=== PATIENT | male | born 1975 | race Caucasian/White ===

== ENCOUNTER 2019-02-17 11:05 | Emergency (ER) | payer BC, SELFPAY ==
[2019-02-17 11:06] VITALS: BP 129/76; PULSE 78; RESP 16; TEMP 36; O2SAT 95; BMI 33.0
[2019-02-17] MEDS: Doxycycline 100 MG CAPSULE PO (11:38)
[2019-02-17] MEDS: HYDROcodone Bitartrate/Apap 5/325 Tablet PO (11:38)
--- NOTE | 2019-02-17 11:42 | RAD_ITS ---
STUDY: X-RAY - LEFT ELBOW REASON FOR EXAM: Male, 43 years old. Pain and swelling. TECHNIQUE: 3 view(s) of the elbow. COMPARISON: None. FINDINGS: Normal visualized humerus, radius and ulna. Degenerative spur off of the olecranon. Normal radiocapitellar and ulnotrochlear articulations. Soft tissue swelling overlying the olecranon process. RAD/Elbow min 3 Views IMPRESSION: Soft tissue swelling overlying the olecranon with degenerative spurring of the olecranon. Electronically Signed: Gage Humphrey, at 12:21 EST , Service support ,
--- NOTE | 2019-02-17 12:32 | ED.DCSUM_ITS ---
History of Present Illness Chief Complaint: Cellulitis Detail of Chief Complaint: Left elbow pain and swelling Informant: Patient, Family Onset: Weeks - 1 week Current Severity: Moderate Maximum Severity: Moderate Narrative: Patient presents with pain and swelling to the left elbow. 6 days ago he noted some pain in his elbow. He woke the next morning with a swollen area on extensor surface of his elbow. He was seen at the emergency room in [place] and was diagnosed with bursitis. He was started on an NSAID. Patient is scheduled to follow-up with orthopedics this coming week. He states that the focal swelling in the back of his elbow seems to be improved, but he now has swelling noted over the proximal forearm with mild erythema. He does have pain with flexion and extension of his elbow, feel that the skin on the back of his elbow was pulling tight. He does not have paresthesias. He is left-hand dominant. - Past Medical History (1) Myocardial infarction Status: Chronic (2) H/O heart artery stent Status: Chronic Past Medical History - Allergies and Home Meds Allergies/Adverse Reactions: Allergies No Known Allergies Allergy (Verified 02/17/19 11:07) Prior records reviewed: Yes Lives: Spouse/ Significant Other Smoking Status: Never smoker Review of Systems General: Denies: Chills, Fever Eyes: Denies: Visual changes - bilaterally ENT: Denies: Bilateral ear pain Cardiovascular: Denies: Chest pain Respiratory: Denies: Dyspnea, Cough Gastrointestinal: Denies: Abdominal pain, Nausea, Vomiting, Diarrhea Musculoskeletal: Reports: Swelling, Extremity Pain Skin: Denies: Wounds Neurological: Denies: Weakness, Parasthesia Allergy: Denies: Uticaria Physical Exam Vital Signs/Narrative: Vital Signs Temp Pulse Resp BP Pulse Ox 02/17/19 11:06 96.8 F L 78 16 129/76 H 95 Inital Vital Signs reviewed: Yes General: Well nourished, Well developed Head: Normocephalic ENT: Moist mucous membranes Neck: Supple Cardiovascular: Regular rate, Regular rhythm Respiratory: No distress, CTA bilaterally Abdomen: Soft, Nontender Extremities: - - Mild erythema and edema noted over the posterior elbow and proximal forearm. No focal swelling consistent with an acute bursitis is noted at this time. Patient is able to pronate and supinate his hand without difficulty. He is able to flex and extend but does have pain with movement. There is no sign of joint infection. Skin: - - Mild erythema to left elbow Neurological: Alert, Oriented x3 Psychological: Normal affect Diagnostic/Tx/Re-eval Impressions Elbow X-Ray 02/17/19 11:42 IMPRESSION: Soft tissue swelling overlying the olecranon with degenerative spurring of the olecranon. Electronically Signed: Gage Humphrey, at 12:21 EST , Service support , 02/17/19 11:42 Elbow min 3 Views [RAD] Stat - Medical Decision Making Patient was given 1 tab of [place] here. X-rays are unremarkable. The bursal sac may have drained causing a more diffuse mild edema. There is mild erythema with minimal warmth. Patient's primary concern is his cardiac history with cardiac stent in place. He does not want any infection to go to his heart. He will be treated with a course of doxycycline, first dose given here. Thomas wrap is applied to the left elbow. He already has follow-up scheduled with orthopedics in 2 days. ED Disposition - Plan for ED Patient: Disposition: Home or Assisted Living Diagnosis: Cellulitis Instructions: Cellulitis Prescriptions: Doxycycline 100 mg PO BID #20 cap Transmission Status: Received by [id number] Hydrocodone Bitart/Apap 5-325 [[place] 5MG-325MG] 1 tab PO Q6H PRN PRN 3 Days #10 tab PRN Reason: Pain Transmission Status: Received by [id number] Referrals: Servando Sharp DO [STAFF PHYSICIAN] - Keep Trena appointment
[2019-02-17 12:49] VITALS: BP 131/67; PULSE 72; RESP 16; O2SAT 99
== END 2019-02-17 12:50 | disposition home or self-care (01) ==
PROVIDERS: Emergency Provider Emergency Medicine; Family Provider Family Medicine; PCP Family Medicine
DX: L03.114 Cellulitis of left upper limb (principal); M70.32 Other bursitis of elbow, left elbow; Y93.9 Activity, unspecified; M77.9 Enthesopathy, unspecified; I25.2 Old myocardial infarction; Z95.5 Presence of coronary angioplasty implant and graft; Z79.82 Long term (current) use of aspirin; Z79.899 Other long term (current) drug therapy
CPT/HCPCS: 73080; 99283

== ENCOUNTER → 2022-03-04 | Outpatient (CLI) | payer BC, SELFPAY ==
--- NOTE | 2022-03-04 08:48 | MRI_ITS ---
EXAM: MR RIGHT UPPER EXTREMITY WITHOUT INTRAVENOUS CONTRAST, SHOULDER CLINICAL INDICATION: pain and injury -- Patient also has metal plate in left orbit TECHNIQUE: Multiplanar and multisequence MR images of the right shoulder without intravenous contrast. This report was created using [employer] report generation technology. COMPARISON: X-ray 02/08/2022. FINDINGS: TENDONS: SUPRASPINATUS: 4 mm low-grade partial tear of the supraspinatus footprint. INFRASPINATUS: Unremarkable. Intact. SUBSCAPULARIS: Complete tear of the subscapularis tendon with 3 cm retraction. TERES MINOR: Unremarkable. Intact. BICEPS BRACHII, LONG HEAD: Unremarkable. The extra-articular biceps tendon is in the bicipital groove. The intra-articular biceps tendon is normal. LIGAMENTS: GLENOHUMERAL: Middle glenohumeral ligament appears torn. MUSCLES: Interstitial edema in the proximal subscapularis muscle consistent with tendon tear. FLUID: Trace joint effusion. No subacromial-subdeltoid space bursal fluid. GLENOID LABRUM: Unremarkable. Intact, limited evaluation on non-arthrographic exam. BONES/JOINTS: Mild acromioclavicular arthrosis. No fracture. No abnormal bone marrow signal. OTHER SOFT TISSUES: Extensive anterior bursal fluid consistent with tendon tear. MRI/Upper Ext Joint Only(Routine) IMPRESSION: 1. Complete subscapularis tendon tear. 2. Low-grade partial supraspinatus tendon tear. 3. Middle glenohumeral ligament tear. 4. Anterior bursal effusion. Electronically Signed: Opal Duarte MD at 23:12 EST Reading Location ID and State: [id number] / Tel , Service support ,
== END | disposition home or self-care (01) ==
PROVIDERS: PCP Family Medicine; Visit Provider Physician Assistant
DX: M19.011 Primary osteoarthritis, right shoulder (principal); M75.111 Incomplete rotator cuff tear or rupture of right shoulder, not specified as traumatic; H57.12 Ocular pain, left eye; S46.811A Strain of other muscles, fascia and tendons at shoulder and upper arm level, right arm, initial encounter; S05.92XA Unspecified injury of left eye and orbit, initial encounter
CPT/HCPCS: 73221

== ENCOUNTER 2022-05-03 07:02 | Day surgery (SDC) | payer BC, SELFPAY ==
[2022-05-03] VITALS (8 sets, daily range): BP systolic 116–160; BP diastolic 83–99; PULSE 67–87; RESP 16–18; TEMP 36.5–36.9; O2SAT 92–97; BMI 31.9
[2022-05-03 07:30] LABS: Hematocrit 42.1 % (40-54); Hemoglobin 14.8 g/dL (13.0-16.5); Mean Corp Hgb Conc 35.2 g/dL (32-36); Mean Corpuscular Hgb 32.6 pg (27.0-32.0); Mean Corpuscular Volume 92.7 fL (80-94); Mean Platelet Vol. 9.8 fl (6.2-12.0); Platelet Count 152 K/mm3 (150-450); RBC Distribution Width CV 12.3 % (11.6-14.6); RBC Distribution Width SD 41.9 fl (35.1-43.9); Red Blood Count 4.54 M/mm3 (4.6-6.2)
[2022-05-03] MEDS: Lactated Ringers 1,000 ML 15 ML IV ×3 (07:43→12:10)
[2022-05-03 07:53] LABS: Anion Gap 9 (5-15); BUN 15 mg/dL (7-18); BUN/Creat Ratio 10.3 RATIO (10-20); Calcium,Total 8.9 mg/dL (8.5-10.1); Chloride 105 mmol/L (98-107); Creatinine, Serum 1.45 mg/dL (0.70-1.30); EST Glomerular Filtration Rate 56 mL/min (>60); Est Glom Filt Rate - Afr Amer 67 mL/min (>60); Estimated Creatinine Clearance 65.73 ml/min; Glucose 125 mg/dL (74-106); Potassium 4.2 mmol/L (3.5-5.1); Sodium Level 138 mmol/L (136-145)
--- NOTE | 2022-05-03 08:34 | HP.PCM_ITS ---
HPI - General HPI Narrative LINCOLN OGDEN, is a 47 M who presents for right shoulder ARCR. No changes to h and p. marked right shoulder. ok to proceed. post op restrictions discussed. MR#: [id number] Acct: [id number] Name:LINCOLN HERR Rep #: [id number] : 1975 ? ? Provider: Dr. Philippe Ibanez MD Age/Sex:? 47/M ? ? [place] [facility] [place] [facility] [place] Status: Signed Intake Intake Visit Reasons:?RIGHT SHOULDER Allergies No Known Allergies Allergy (Verified 03/16/22 08:35) Medications aspirin 81 mg tablet,delayed release (Adult Low Dose Aspirin) 81 mg PO DAILY 06/09/21 [History Confirmed 03/16/22] atorvastatin 10 mg tablet (Lipitor) 10 mg PO DAILY 06/09/21 [History Confirmed 03/16/22] colchicine 0.6 mg capsule 0.6 mg PO DAILY 06/09/21 [History Confirmed 03/16/22] metoprolol tartrate 25 mg tablet 25 mg PO DAILY 06/09/21 [History Confirmed 03/16/22] sertraline 150 mg capsule 150 mg PO DAILY 06/09/21 [History Confirmed 03/16/22] prednisone 5 mg tablets in a dose pack 5 mg PO DIRECTED 02/08/22 [History Confirmed 03/16/22] PFSH Medical History?(Updated 03/16/22 @ 09:00 by Philippe Ibanez MD) Avulsion of right subscapularis Encounter for screening for COVID-19 Gout Heart disease HTN (hypertension) SOB (shortness of breath) Surgical History? H/O hernia repair History of facial surgery Family History? Other Heart disease Hypercholesterolemia Social History? Smoking Status:? Never smoker Smokeless tobacco user:? chewing tobacco alcohol intake:? current alcohol intake frequency: 3 or more drinks per day Alcohol type: beer HPI RIGHT SHOULDER Details: Parts of this documentation were recorded by a scribe, this documentation accur ately reflects the service provided and the decisions made by me, Dr. Philippe Ibanez MD 03/16/22 0821. LINCOLN OGDEN is a 47 year old M here today for? there was a pop when getting onto a horse 6 weeks ago, bareback. And got bucked off. It hurt, anteriorly. Ambidextrous, but lots with right. This is a hobby, playing with his daughters. Feels weak now. Ortho Exam General General: Yes no acute distress Neurologic: Yes alert and Yes oriented x3 Psychologic: Yes reasonable and appropriate Right Shoulder Skin/Wound: Yes CDI, No ecchymosis, No erythema and No swelling Testing: Positive Hawkin's, Neer's, TTP Biceps, AROM-External Rotation at side 0-60, PROM-Forward Elevation 0-180, empty can and belly press normal; Negative Speed's, TTP AC Joint, Drop Arm, Apprehension Test, Sulcus Sign or scapular winging SHOULDER: bear hug strong 4+/5 but causes anterior pain. SS 4+/5 Supplemental Info MR#:? [id number] Acct: [id number] Name:? LINCOLN LLANOS SR Rep #: [id number] :?? 1975 M 46 ? From:? ? Eric Nickerson MD PCP: Dr. Alonso Glez MD ? Status: REG AMB Study: Shoulder min 2 Views ? Date of Exam: 02/08/22 Exam# [id number] ? Ordering Dr:? Reza Nino EXAM:? XR RIGHT SHOULDER COMPLETE, 2 OR MORE VIEWS CLINICAL INDICATION:? pain TECHNIQUE:? Two or more views of the right shoulder.? This report was created using [employer] report Real Time Content technology. COMPARISON:? None. FINDINGS: BONES/JOINTS:? Unremarkable.? No acute fracture.? No subluxation.? Normal alignment.? Preservation of the joint space.? No sclerotic or destructive changes observed. SOFT TISSUES:? Unremarkable.? No soft tissue swelling or gas.? No radiopaque foreign body. RAD/Shoulder min 2 Views IMPRESSION: Negative right shoulder x-rays. ? Electronically Signed: Eric Nickerson MD at 17:25 EST , XAM:? MR RIGHT UPPER EXTREMITY WITHOUT INTRAVENOUS CONTRAST, SHOULDER CLINICAL INDICATION:? pain and injury -- Patient also has metal plate in left orbit TECHNIQUE:? Multiplanar and multisequence MR images of the right shoulder without intravenous contrast.? This report was created using [employer] report generation technology. COMPARISON:? X-ray 02/08/2022. FINDINGS: TENDONS: SUPRASPINATUS:? 4 mm low-grade partial tear of the supraspinatus footprint. INFRASPINATUS:? Unremarkable.? Intact. SUBSCAPULARIS:? Complete tear of the subscapularis tendon with 3 cm retraction. TERES MINOR:? Unremarkable.? Intact. BICEPS BRACHII, LONG HEAD:? Unremarkable.? The extra-articular biceps tendon is in the bicipital groove.? The intra-articular biceps tendon is normal. LIGAMENTS: GLENOHUMERAL:? Middle glenohumeral ligament appears torn. MUSCLES: Interstitial edema in the proximal subscapularis muscle consistent with tendon tear. FLUID: Trace joint effusion.? No subacromial-subdeltoid space bursal fluid. GLENOID LABRUM:? Unremarkable.? Intact, limited evaluation on non-arthrographic exam. BONES/JOINTS:? Mild acromioclavicular arthrosis.? No fracture.? No abnormal bone marrow signal. OTHER SOFT TISSUES:? Extensive anterior bursal fluid consistent with tendon tear. MRI/Upper Ext? Joint Only(Routine) IMPRESSION: ? 1.? Complete subscapularis tendon tear. ? 2.? Low-grade partial supraspinatus tendon tear. ? 3.? Middle glenohumeral ligament tear. ? 4.? Anterior bursal effusion. ? Electronically Signed: Opal Duarte MD at 23:12 EST Reading Location ID and State: [id number] / Tel , Service support? , Coding Level of Care Code Off vis,est,level 4 Diagnoses Avulsion of right subscapularis? S46.891A Time Spent (min) 30 Comment decision for surgery with cardiac risk factor Assessment and Plan Assessment and Plan (1) Avulsion of right subscapularis: ?Status:?Acute ?Plan: 47-year-old man with what appears to be avulsion of the subscapularis after trauma.? He also has a partial-thickness supraspinatus tear.? 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 For these things he could try conservative management rest ice anti-inflammatories physical therapy for strengthening he states the pain is limiting his strength and range of motion of this.? Surgical option would be right shoulder arthroscopy, rotator cuff repair in the form of subscapularis repair and possibly debridement versus repair of the supraspinatus tendon.? We discussed the diagnosis prognosis aftercare and restrictions after surgery.? He would like to go ahead with this and signed consent form for that as well as possible need for blood products. Pros and cons risks and benefits were discussed with the patient including but not limited to infection, pain, stiffness, bleeding, damage to surrounding stru ctures, neurovascular injury, recurrence or retear, failure or wear of hardware or fixation, instability, fracture, deep vein thrombosis and pulmonary embolism, anesthetic risks, patient dissatisfaction, need for further surgery and other risks.? Patient understood and wished to proceed with surgery, and signed the informed consent documentation. Has a cardiac stent for [place] in the past on ASA so will get cardiac clearance. [facility] Medical History (Updated 04/26/22 @ 09:11 by Lindsay Arreola) Abrasion Anxiety Avulsion of right subscapularis Back pain Cardiology follow-up encounter Chewing tobacco nicotine dependence Encounter for screening for COVID-19 Gout Gout Heart disease High cholesterol History of amputation of finger History of eye injury History of heart attack History of stress test HTN (hypertension) Hypertension Injury of head and neck Shortness of breath on exertion SOB (shortness of breath) Umbilical hernia Home Medications aspirin 81 mg tablet,delayed release (Adult Low Dose Aspirin) 81 mg PO DAILY 06/09/21 [History Last Taken 05/02/22] atorvastatin 10 mg tablet (Lipitor) 10 mg PO QHS 06/09/21 [History Last Taken Unknown] colchicine 0.6 mg capsule 0.6 mg PO DAILY 06/09/21 [History Last Taken 05/03/22] metoprolol tartrate 25 mg tablet 25 mg PO BID 06/09/21 [History Last Taken 05/03/22] sertraline 150 mg capsule 150 mg PO QHS 06/09/21 [History Last Taken Unknown] pantoprazole 40 mg tablet,delayed release (Protonix) 40 mg PO DAILY 05/03/22 [History Last Taken 05/03/22] Allergy/AdvReac Type Severity Reaction Status Date / Time No Known Allergies Allergy Verified 05/03/22 07:19 Family History Other Heart disease Hypercholesterolemia Surgical History (Updated 04/26/22 @ 09:11 by Lindsay Arreola) H/O hernia repair History of cardiac catheterization History of coronary artery stent placement History of facial surgery Social History Smoking Status: Current every day smoker tobacco type: smokeless tobacco Smokeless tobacco user: chewing tobacco alcohol intake: current alcohol intake frequency: 3 or more drinks per day Alcohol type: beer Vital Signs Vital Signs Vital Signs: 05/03/22 07:38 05/03/22 07:38 Temperature 98.4 F Temperature Source Temporal Pulse Rate 79 Respiratory Rate 18 Respiratory Pattern Normal Blood Pressure 116/83 H Blood Pressure Mean 94 Blood Pressure Source Monitor Blood Pressure Position Semi-Fowlers Blood Pressure Location Left Arm Pulse Ox 97 Oxygen Delivery Method Room Air Weight Weight: 222 lb 10.67 oz Body Mass Index (BMI) 31.9 Results Lab / Micro Data Result Diagrams: 05/03/22 07:25 05/03/22 07:25 Labs: Laboratory Results - last 24 hr 05/03/22 07:25: WBC 6.0, RBC 4.54 L, Hgb 14.8, Hct 42.1, MCV 92.7, MCH 32.6 H, MCHC 35.2, RDW Std Deviation 41.9, RDW Coeff of Chiquita 12.3, Plt Count 152, MPV 9.8 05/03/22 07:25: Sodium 138, Potassium 4.2, Chloride 105, Carbon Dioxide 24.0, Anion Gap 9, BUN 15, Creatinine 1.45 H, Estim Creat Clear Calc 65.73, Est GFR (MDRD) Af Amer 67, Est GFR (MDRD) Non-Af 56 L, BUN/Creatinine Ratio 10.3, Glucose 125 H, Calcium 8.9
[2022-05-03] MEDS: Cefazolin 2 GM in 0.9% Normal Saline 100 ML IV (08:41)
[2022-05-03] MEDS: Epinephrine (1 mg/ml) 1 MG/ML VIAL ×2 (09:19→10:43)
--- NOTE | 2022-05-03 11:46 | PCM.OPRPT ---
Problems Associated Problem List Diagnoses (1) Avulsion of right subscapularis: Report of Operation Date of Procedure: 05/03/22 Pre-Operative Diagnosis: right Ssc avulsion, partial fraying SS tendon Post-Operative Diagnosis: same Surgery/Procedure Performed:: right shoulder arthroscopic subscapularis repair and subacromial decompression Surgeon: Philippe Ibanez Type of Anesthesia: Block,Regional and General Anesthesiologist: Anderson Mijares Estimated Blood Loss (mL): 200 Description of Procedure: Patient brought to the operating room theater. Placed supine on the operating room table. General anesthesia induced. 2 g IV Ancef administered prior to start of the procedure. Beanbag positioner used. Patient placed right side up lateral decubitus. Axillary roll was used SCDs on the legs all bony prominences appropriately padded. Upper extremity prepped and draped in the usual sterile fashion with chlorhexidine-based prep solution allowing over 3 minutes drying time prior to draping. 10 pounds of inline traction with the arm in 35 degrees of abduction was used. Preoperative timeout performed to confirm the site the patient and the surgery. Began by inserting the arthroscope posteriorly. Did a diagnostic arthroscopy. Biceps was intact did have some longitudinal fraying. Root stable. Decided to leave in situ. Subscapularis had an obvious full-thickness avulsion with scar tissue in the interval. Undersurface the rotator cuff tendon supraspinatus as well as infraspinatus appeared normal. No obvious glenohumeral joint osteoarthritis. Labrum was normal. There is some mild synovitis anteriorly. I mobilized the rotator interval as well as identified the leading edge of the subscapularis tear. I worked on the anterior and posterior aspects of this, as well as inferiorlym, staying superior to axillary nerve. I made an accessory interval portal through the interval, inside out spinal needle localization just posterior to the biceps tendon. I also used a lateral portal as well as an anterolateral portal off the leading edge of the acromion. I used cannulas throughout the case 7 x 7 mm cannulas as well as the Arthrex Evgeny wing type cannula. I performed a complete bursectomy in the subacromial space. I performed a subacromial decompression to increase the working room. No tears on superior surface of cuff with probing. I used a 70 degree scope to identify the extent of the tear. I performed release of tissue underneath inferior to the coracoid to identify the coracoid and mobilized the tear and any scar tissue. I assessed the mobility of the tear. This was relatively mobile to the lesser tuberosity insertion. Biceps tendon was not subluxed as there was a small cuff of tissue remaining from the subscapularis avulsion. I gently debrided this. I used the Arthrex power pick at the lesser tuberosity to stimulate healing. I passed for fiber link sutures to create luggage tag type stitches for a single row repair. I used the punch down to the second line at the lesser tuberosity. I placed two 4.75 mm Arthrex biocomposite suture anchors with the 2 sutures inferiorly going into the inferior anchor and the 2 superior sutures going into the superior anchor. This created a solid repair. Final arthroscopy pictures were taken and saved onto the system and sutures cut short. Both anchors had good purchase into the bone. Case was terminated arthroscope withdrawn and skin cleaned with wet and dry dressing. Subcutaneous tissue closed with 2-0 Vicryl and skin with 3-0 Monocryl. Steri-Strips followed by Adaptic 4 x 4 gauze and abdominal pad dressings and cloth tape and an abduction pillow sling was placed onto the upper extremity. Patient woken up from the general anesthetic transferred off the operating room table and taken to postanesthetic care unit in stable condition. All sponge needle instrument counts were correct no complications. Plan for the patient in the sling start pendulum exercises avoid external rotation beyond neutral for the first 6 weeks. Follow-up in the office in 2 days time and narcotic counseling given. Complications none Admit VTE Documentation VTE Present on Admission: No VTE Mechan Device Prophylaxis: None VTE Pharm Prophylaxis ordered?: No Reason prophylaxis not ordered:: Treatment Not Indicated Procedures Musculoskeletal 20xxx-29xxx: Other Procedure See Report
--- NOTE | 2022-05-03 11:57 | DCINST_ITS ---
Discharge Instructions Diet Discharge Diet: No restrictions Activity Lifting Restrictions: no lifting, pendulums only, no ER over neutral Dressing / Incision Call your doctor if your incision/area has: Continuous Slow Oozing, Sudden Increased Bleeding, Increased Pain/ Swelling, Increased Redness, Foul Smelling Discharge and Swelling at the incision site Change Dressing in: leave in place till F/U Follow Up Care Please Follow Up With: Philippe Ibanez MD When: 2 days Test Results: Test results from this visit will be discussed in further detail at your follow- up appointment, if applicable. Discharge Plan Admission Attending Provider: Philippe Ibanez Primary Care Provider: Alonso Glez Discharge Orders/Prescriptions Prescriptions: New oxycodone-acetaminophen [Endocet] 5-325 mg tablet 1 tab PO Q6H MDD 6 PRN (Reason: pain) 7 Days Qty: 30 0RF No Action metoprolol tartrate 25 mg tablet 25 mg PO BID colchicine 0.6 mg capsule 0.6 mg PO DAILY atorvastatin [Lipitor] 10 mg tablet 10 mg PO QHS sertraline 150 mg capsule 150 mg PO QHS aspirin [Adult Low Dose Aspirin] 81 mg tablet,delayed release (DR/EC) 81 mg PO DAILY pantoprazole [Protonix] 40 mg Tablet,Delayed Release (Dr/Ec) 40 mg PO DAILY Referrals / Follow Up: Alonso Glez MD [Primary Care Provider] - Disposition Disposition (needs filled in before D/C Order can be placed): Home, Self Care
== END 2022-05-03 14:21 | disposition home or self-care (01) ==
LOC: SDC 07:03 → AC 07:05
PROVIDERS: Anesthesiology; PCP Family Medicine; Referring Provider Orthopaedic Surgery Sports Medicine; Visit Provider Orthopaedic Surgery Sports Medicine
PROC: (CPT 29805; principal; 2022-05-03 08:10)
DX: S46.001A Unspecified injury of muscle(s) and tendon(s) of the rotator cuff of right shoulder, initial encounter (principal); Z79.82 Long term (current) use of aspirin; Z95.5 Presence of coronary angioplasty implant and graft; M75.111 Incomplete rotator cuff tear or rupture of right shoulder, not specified as traumatic; F17.220 Nicotine dependence, chewing tobacco, uncomplicated; I10 Essential (primary) hypertension; E78.00 Pure hypercholesterolemia, unspecified; V80.010A Animal-rider injured by fall from or being thrown from horse in noncollision accident, initial encounter; S46.891A Other injury of other muscles, fascia and tendons at shoulder and upper arm level, right arm, initial encounter
CPT/HCPCS: 29822; 01630; 80048; 85027; J7120; J0330; J2405

== ENCOUNTER 2022-05-22 17:00 | Outpatient (RCR) | payer BC, SELFPAY ==
--- NOTE | 2022-05-11 11:49 | HP.PTEVAL ---
Patient's Visit Information LINCOLN OGDEN is a 47 year old M referred to Physical Therapy by Dr. Philippe Ibanez MD with a diagnosis of Avulsion of right subscapularis, Other injury of other muscles right arm. Date of Evaluation: 05/11/22 Physical Therapist: Niles Villar - Visit Plan Frequency: 2x /Week Duration: 3 Months Plan: Follow RTC repair protocol. No ER over neutral for weeks 0-6. Only pendulums week 0-2. Use modalities as needed for pain control. - Subjective Pt. is a 47 y.o. male who injured his right shoulder January 31 when he got bucked off of a horse and landed on his right shoulder. Pt. eventually had imaging which showed avulsion of right subscapularis. Pt. had right RTC repair on 05-03-22 and is currently in an ultra sling. Pt. is left handed mostly. His PLOF includes no history of right shoulder pain in the past but has had left shoulder pain for many years. He denies any numbness or tingling in his right arm currently. Pt. has difficulty with reaching overhead, reaching out to the side, reaching behind his back, sleeping, driving, UE dressing/bathing, lifting things, carrying things, pushing/pulling, fishing, golfing, housework, yard work, and work activity. Pt. 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 His goal with physical therapy is to get back to normal including fishing and riding his motorcycle. He has had previous physical therapy for his left finger. Pt. rates right shoulder pain at 2/10 currently, at worst 8/10, at best 0/10 and describes the pain as achy and sharp. He is currently taking Oxycodone and Tylenol. His PMH includes heart attack in 2019 and had stent placed, tobacco chew, left finger surgery, umbilical hernia, and left orbital surgery. His hobbies include fishing, golfing, hobby farm, and riding motorcycle. - Objective Posture- Good posture in standing. Palpation- Vague tenderness over right shoulder. AROM left shoulder flexion 175 degrees, abduction 178 degrees, ER 88 degrees, IR 70 degrees. AROM right shoulder- NT. PROM right shoulder- flexion 130 degrees, scaption 120 degrees, IR 50 degrees, ER- NT. Left shoulder strength flexion 4+/5, abduction 4+/5, ER 5/5, IR 4+/5. Right shoulder strength- NT - Balance/Special Test Scores Quick DASH Score: 65.9075 - Goals Goal 1:: Pt. will no longer be in a sling. Goal Time Frame: 4-6 Weeks Goal 2:: Pt. will improve right shoulder AROM flexion and abduction > 160 degrees in order to improve reaching overhead. Goal Time Frame: 6-8 Weeks Goal 3:: Pt. will improve right shoulder strength to 4+/5 for all motion in order to return to work activity. Goal Time Frame: 12-16 Weeks Goal 4:: Pt. will be able to sleep a full night with no right shoulder pain. Goal Time Frame: 12-16 Weeks Goal 5:: Pt. will be able to return to work with right shoulder pain < 3/10. Goal Time Frame: 12-16 Weeks Goal 6:: Pt. will improve Quick Dash score < 30% disability in order to improve ADL's and work activity. Goal Time Frame: 12-16 Weeks - Rehabilitation Potential Physical Therapy Diagnosis: Decreased right shoulder ROM, strength, and pain Rehabilitation Potential: Good - Anticipated Interventions Patient/Client Instruction: Educate patient on: Condition, Plan of Care For the Purpose of:: To decrease pain, To increase ROM, To improve ability to perform ADL's, To improve performance and independence with ADL's, To increase flexibility/ROM, To assume or resume ADL's, To improve tolerance to ADL's Therapeutic Exercise to Include: Strength training, Postural training, Passive ROM, Active ROM, Scapular Strength/Stabilization Comment: Follow RTC repair protocol. No ER over neutral weeks 0-6. Pendulums only weeks 0-2. For the Purpose of:: To decrease pain, To increase ROM, To improve ability to perform ADL's, To improve performance and independence with ADL's, To increase flexibility/ROM, To assume or resume ADL's, To improve tolerance to ADL's Manual Therapy Techniques to Include: Passive ROM, Soft tissue mobilization For the Purpose of:: To decrease pain, To increase ROM, To improve ability to perform ADL's, To improve performance and independence with ADL's, To increase flexibility/ROM, To assume or resume ADL's, To improve tolerance to ADL's TENS: Yes IF ES: Yes Cryotherapy (ice pack, ice massage): Yes For the Purpose of:: To decrease pain, To decrease swelling/inflammation, To improve ability to perform ADL's, To improve performance and independence with ADL's, To increase flexibility/ROM, To assume or resume ADL's, To improve tolerance to ADL's Thank you for the opportunity to evaluate your patient. For Medicare and Medicare HMO plans, please review the plan of care and approve it. It will need to be FAXED BACK to us at [phone] for Medicare purposes. For Medicare only, by signing this I certify the plan of care. Please let me know if there are questions or concerns regarding this plan of care. Physician Signature: Date:
--- NOTE | 2022-09-05 13:36 | HP.PT.NRP ---
LINCOLN OGDEN was seen in my office for initial evaluation on 05/11/22. The following Plan of Care was established for this patient: Initial Frequency: 2x /Week Initial Duration: 3 Months Patient/Client Instruction: Educate patient on: Condition, Plan of Care For the Purpose of:: To decrease pain, To increase ROM, To improve ability to perform ADL's, To improve performance and independence with ADL's, To increase flexibility/ROM, To assume or resume ADL's, To improve tolerance to ADL's Therapeutic Exercise to Include: Strength training, Postural training, Passive ROM, Active ROM, Scapular Strength/Stabilization For the Purpose of:: To decrease pain, To increase ROM, To improve ability to perform ADL's, To improve performance and independence with ADL's, To increase flexibility/ROM, To assume or resume ADL's, To improve tolerance to ADL's Manual Therapy Techniques to Include: Passive ROM, Soft tissue mobilization For the Purpose of:: To decrease pain, To increase ROM, To improve ability to perform ADL's, To improve performance and independence with ADL's, To increase flexibility/ROM, To assume or resume ADL's, To improve tolerance to ADL's TENS: Yes IF ES: Yes Cryotherapy (ice pack, ice massage): Yes For the Purpose of:: To decrease pain, To decrease swelling/inflammation, To improve ability to perform ADL's, To improve performance and independence with ADL's, To increase flexibility/ROM, To assume or resume ADL's, To improve tolerance to ADL's This patient was last seen in our office 05/22/22. Pertinent comments regarding their Physical therapy will appear below: Pt seen 4 visits of POC. They cancelled the last 3 visits and when patient was called, he stated that he would call to get back in when returned from [facility]. At this point, it has been over 3 months and I will discontinue due to nonattendance. At this point I will be discontinuing this patient from physical therapy. I would be happy to see this patient again in the future if found appropriate by the physician. Thank you! Marvin Steward, DPT, OCS, CSCS Balance/Gait/Functional tests - Balance/Special Test Scores Quick DASH Score: 65.9075
== END 2022-05-22 19:00 | disposition home or self-care (01) ==
LOC: PT 17:00
PROVIDERS: PCP Family Medicine; Referring Provider Orthopaedic Surgery Sports Medicine; Visit Provider Orthopaedic Surgery Sports Medicine
DX: S46.891A Other injury of other muscles, fascia and tendons at shoulder and upper arm level, right arm, initial encounter (principal)
CPT/HCPCS: 97110; 97140; 97161

== ENCOUNTER → 2022-12-14 | Outpatient (CLI) | payer BC, SELFPAY ==
--- NOTE | 2022-12-14 10:16 | MRI_ITS ---
STUDY: MRI RIGHT SHOULDER REASON FOR EXAM: Male, 47 years old. Rule out repeat subscapularis tear. TECHNIQUE: Standardized fat and water weighted pulse sequences were obtained in all 3 orthogonal planes. COMPARISON: Right shoulder MRI dated 03/04/2022. FINDINGS: There is persistent supraspinatus and infraspinatus tendinosis. There are postoperative changes related to subscapularis tendon repair surgery, with multiple anchors in the lesser tuberosity of the humeral head. There is a full-thickness tear of the superior half of the distal subscapularis tendon, overall measuring 1.7 cm in length and 1.0 cm in width (axial T2 series 4 images 13-15; sagittal T2 series 7 images 14-18). Normal teres minor tendon. Normal supraspinatus muscle. Normal infraspinatus muscle. There is moderate atrophy and fatty infiltration of the superior half of the subscapularis muscle. Normal teres minor muscle. There is a small glenohumeral joint effusion. Intact humeral head and visualized proximal humerus. Normal biceps labral complex. Normal intracapsular long biceps tendon. Normal labrum. Normal capsulo-ligamentous complex. Normal rotator interval. There is hypertrophic acromioclavicular arthrosis with inferior osteophyte formation. There is a Type II morphology (curved), with a neutral orientation. There is trace subacromial-subdeltoid bursal fluid. Normal visualized coracohumeral and coracoacromial ligaments. Normal quadrilateral space. Normal axillary space. Normal deltoid muscle. Normal trapezius muscle. MRI/Upper Ext Joint Only(Routine) IMPRESSION: 1.7 x 1.0 cm full-thickness tear of the superior half of the distal subscapularis tendon. Moderate atrophy and fatty infiltration of the superior half of the subscapularis muscle. Persistent supraspinatus and infraspinatus tendinosis. Small glenohumeral joint effusion. Hypertrophic acromioclavicular arthrosis with inferior osteophyte formation. Trace subacromial-subdeltoid bursal fluid. Electronically Signed: Héctor Alicea MD at 15:28 EDT ,
--- NOTE | 2022-12-14 10:16 | MRI_ITS ---
STUDY: MRI LEFT ELBOW REASON FOR EXAM: Male, 47 years old. Lump. TECHNIQUE: Standardized fat and water weighted pulse sequences were obtained in all 3 orthogonal planes. COMPARISON: Left elbow radiographs dated 11/02/2022. FINDINGS: There is a lobular mass with low to intermediate T1/T2 signal in the region of the olecranon bursa, overall measuring 1.0 cm AP, 3.2 cm transverse, and 4.0 cm craniocaudad, which could represent a chronic hematoma, scarring from remote olecranon bursitis, tophaceous gout, or a fibrotic mass. Normal radio-capitellum articulation. Normal radial collateral ligamentous complex. Normal common extensor tendon. Normal ulnotrochlear articulation. Normal ulnar collateral ligamentous complex. Normal common flexor tendon. The cubital tunnel is normal, with a normal ulnar nerve. Normal biceps tendon and distal insertion. Normal lacertus fibrosis. Normal brachialis musculotendinous insertion. Normal triceps tendon and teno-osseous insertion. Normal olecranon process. The visualized distal humerus, proximal radius, and ulna are normal. The visualized muscles of the distal arm and proximal forearm are normal. MRI/Upper Ext Joint Only(Routine) IMPRESSION: Nonspecific 1.0 x 3.2 x 4.0 cm lobular mass in the region of the olecranon bursa, which could represent a chronic hematoma, scarring from remote olecranon bursitis, tophaceous gout, or a fibrotic mass. Electronically Signed: Héctor Alicea MD at 15:38 EDT ,
== END | disposition home or self-care (01) ==
PROVIDERS: PCP Family Medicine; Referring Provider Orthopaedic Surgery Sports Medicine; Visit Provider Orthopaedic Surgery Sports Medicine
DX: M25.511 Pain in right shoulder (principal); M25.522 Pain in left elbow; M70.22 Olecranon bursitis, left elbow
CPT/HCPCS: 73221

== ENCOUNTER 2023-03-13 11:04 | Day surgery (SDC) | payer BC, SELFPAY ==
[2023-03-13] VITALS (7 sets, daily range): BP systolic 110–137; BP diastolic 78–95; PULSE 66–72; RESP 16; TEMP 36.2–36.4; O2SAT 93–99; BMI 29.3
--- NOTE | 2023-03-13 11:45 | RAD_ITS ---
STUDY: X-RAY - LEFT ELBOW REASON FOR EXAM: Male, 48 years old. LEFT ELBOW BURSECTOMY, DEBRIDEMENT TECHNIQUE: A single lateral intraoperative digital documentation view(s) of the elbow. COMPARISON: November 02, 2022 FINDINGS: Removal of olecranon spur. Single lateral documentation image performed. RAD/Elbow 2 Views IMPRESSION: Normal x-ray examination of the elbow. Electronically Signed: Jr Guzman MD at 15:32 EST ,
[2023-03-13] MEDS: Lactated Ringers 1,000 ML 15 ML IV (11:55)
--- NOTE | 2023-03-13 12:04 | HP.PCM_ITS ---
HPI - General HPI Narrative LINCOLN OGDEN, is a 48 M who presents for left elbow bursectomy, debridement. H and p no changes. OK to proceed. RAB and post op meds and instructions. MR#: [id number] Acct: [id number] Name: LINCOLN PARSONS Rep #: [id number] : 1975 Provider: Dr. Philippe Ibanez MD Age/Sex: 47/M Location: [facility] [place].[facility]SE [facility]UAN Status: Signed Intake Vital Signs 05/03/2306:38 Height 5 ft 10 in Intake Visit Reasons: LEFT ELBOW Chief Complaint: left elbow Is patient in pain?: Yes (left elbow) Pain scale (1-10): 2 Allergies No Known Allergies Allergy (Verified 11/27/22 09:26) PFSH Medical History Abrasion Anxiety Avulsion of right subscapularis Back pain Cardiology follow-up encounter Chewing tobacco nicotine dependence Encounter for screening for COVID-19 Gout Gout Heart disease High cholesterol History of amputation of finger History of eye injury History of heart attack History of stress test HTN (hypertension) Hypertension Injury of head and neck Left elbow pain Olecranon bursitis, left elbow Shortness of breath on exertion SOB (shortness of breath) Umbilical hernia Surgical History H/O hernia repair History of cardiac catheterization History of coronary artery stent placement History of facial surgery Family History Other Heart disease Hypercholesterolemia Social History Smoking Status: Current every day smoker tobacco type: smokeless tobacco Smokeless tobacco user: chewing tobacco alcohol intake: current alcohol intake frequency: 3 or more drinks per day Alcohol type: beer HPI LEFT ELBOW Details: This documentation accurately reflects the service provided and the decisions made by me, Dr. Philippe Ibanez MD 02/07/23 0522. Part of today?s visit was documented by [ ], acting as scribe. LINCOLN OGDEN is a 47 year old M here today for FU left elbow pain and mass, already discussed MRI findings as being what seems like chronic scarring / bursitis or benign fibrotic mass. Patient wishes to go ahead with surgical excision. Ortho Exam General General: Yes no acute distress Neurologic: Yes alert and Yes oriented x3 Psychologic: Yes reasonable and appropriate Left Elbow Skin/Wound: Yes CDI, No eccymosis and No erythema Test: No Valgus Stress Test, No Varus Stress Test, No TTP Medial Epicondyle, No TTP Lateral Epicondyle, No Thenar Atrophy and No Hypothenar Atrophy ROM: Yes Flexion 0-140, Supination 0-90 and Pronation 0-80 Sensation: Radial: I, Ulnar: I and Median: I Motor: Elbow Extension: 5, Elbow Flexion: 5, EPL: 5, FDP-2: 5 and 1st Dorsal Interosseous: 5 ELBOW: moderate size round mass posterior olecranon, moderately firm, mobile, only tender to hit it on things per the patient, nontender to move. no drainage. Supplemental Info [facility] [address] [place] [address] Upper Ext Joint Only(Routine) MR#: [id number] Acct: [id number] Name: DAWN OGDENLINCOLN WOODSONO Rep #: [id number] : 1975 M 47 From: Héctor Alicea MD PCP: Dr. Alonso Glez MD Status: REG CLI Study: Upper Ext Joint Only(Routine) Date of Exam: 12/14/22 Exam# [id number] Ordering Dr: Philippe Ibanez MD STUDY: MRI LEFT ELBOW REASON FOR EXAM: Male, 47 years old. Lump. TECHNIQUE: Standardized fat and water weighted pulse sequences were obtained in all 3 orthogonal planes. COMPARISON: Left elbow radiographs dated 11/02/2022. FINDINGS: There is a lobular mass with low to intermediate T1/T2 signal in the region of the olecranon bursa, overall measuring 1.0 cm AP, 3.2 cm transverse, and 4.0 cm craniocaudad, which could represent a chronic hematoma, scarring from remote olecranon bursitis, tophaceous gout, or a fibrotic mass. Normal radio-capitellum articulation. Normal radial collateral ligamentous complex. Normal common extensor tendon. Normal ulnotrochlear articulation. Normal ulnar collateral ligamentous complex. Normal common flexor tendon. The cubital tunnel is normal, with a normal ulnar nerve. Normal biceps tendon and distal insertion. Normal lacertus fibrosis. Normal brachialis musculotendinous insertion. Normal triceps tendon and teno-osseous insertion. Normal olecranon process. The visualized distal humerus, proximal radius, and ulna are normal. The visualized muscles of the distal arm and proximal forearm are normal. MRI/Upper Ext Joint Only(Routine) IMPRESSION: Nonspecific 1.0 x 3.2 x 4.0 cm lobular mass in the region of the olecranon bursa, which could represent a chronic hematoma, scarring from remote olecranon bursitis, tophaceous gout, or a fibrotic mass. Electronically Signed: Héctor Alicea MD at 15:38 EDT , Coding Level of Care Code Off vis,est,level 3 Diagnoses Olecranon bursitis, left elbow M70.22 Assessment and Plan Assessment and Plan (1) Olecranon bursitis, left elbow: Status: Acute Plan: 47 year old M here today for FU left elbow pain and mass, already discussed MRI findings as being what seems like chronic scarring / bursitis or benign fibrotic mass. Patient wishes to go ahead with surgical excision. Discussed the pros cons risk and benefits of continued nonsurgical management versus left elbow bursectomy, debridement. I would remove the small olecranon spur as well as the mass there. 2 weeks to heal the incision and start early range of motion but no heavy lifting until the incision is healed. The patient understands signed the consent form for surgery as well as possible need for blood products. The patient would like to try to get this on for March 13 if possible. He understands no further questions or concerns. Pros and cons risks and benefits were discussed with the patient including but not limited to infection, pain, stiffness, bleeding, damage to surrounding structures, neurovascular injury, recurrence or retear, failure or wear of hardware or fixation, instability, fracture, deep vein thrombosis and pulmonary embolism, anesthetic risks, , patient dissatisfaction, need for further surgery and other risks. Patient understood and wished to proceed with surgery, and signed the informed consent documentation. [facility] Medical History (Updated 03/05/23 @ 08:21 by Miriam Dawson) Anxiety Avulsion of right subscapularis Back pain Cardiology follow-up encounter Chewing tobacco nicotine dependence Encounter for screening for COVID-19 Gastric reflux Gout Gout Heart disease High cholesterol History of amputation of finger History of eye injury History of heart attack History of stress test HTN (hypertension) Hypertension Injury of head and neck Left elbow pain Olecranon bursitis, left elbow Shortness of breath on exertion SOB (shortness of breath) Umbilical hernia Home Medications aspirin 81 mg tablet,delayed release (Adult Low Dose Aspirin) 81 mg PO DAILY 06/09/21 [History Last Taken 03/09/23] colchicine 0.6 mg capsule 0.6 mg PO DAILY 06/09/21 [History Last Taken 05/03/22] metoprolol tartrate 25 mg tablet 25 mg PO BID 06/09/21 [History Last Taken 03/13/23] sertraline 150 mg capsule 150 mg PO QHS 06/09/21 [History Last Taken Unknown] pantoprazole 40 mg tablet,delayed release (Protonix) 40 mg PO DAILY 05/03/22 [History Last Taken 05/03/22] rosuvastatin 10 mg tablet (Crestor) 10 mg PO DAILY 06/13/22 [History Last Taken Unknown] Allergy/AdvReac Type Severity Reaction Status Date / Time No Known Allergies Allergy Verified 03/13/23 11:39 Family History Other Heart disease Hypercholesterolemia Surgical History (Updated 03/05/23 @ 08:21 by Miriam Dawson) H/O hernia repair History of cardiac catheterization History of coronary artery stent placement History of facial surgery Hx of repair of right rotator cuff Social History Smoking Status: Current every day smoker tobacco type: smokeless tobacco Smokeless tobacco user: chewing tobacco alcohol intake: current alcohol intake frequency: 3 or more drinks per day Alcohol type: beer Vital Signs Vital Signs Vital Signs: 03/13/23 11:41 03/13/23 11:41 Temperature 97.4 F L Temperature Source Temporal Pulse Rate 66 Respiratory Rate 16 Respiratory Pattern Normal Blood Pressure 110/78 Blood Pressure Mean 88 Blood Pressure Source Monitor Blood Pressure Position Semi-Fowlers Blood Pressure Location Right Arm Pulse Ox 99 Oxygen Delivery Method Room Air Weight Weight: 204 lb 5.896 oz Body Mass Index (BMI) 29.3
[2023-03-13] MEDS: Cefazolin 2 GM in 0.9% Normal Saline (100mL Bag) 100 ML IV (12:27)
--- NOTE | 2023-03-13 12:45 | BUR_PTH ---
PATHOLOGY RESULTS PATIENT: LINCOLN PARSONS LOC: [facility] [place] U#:[id number] AGE/SX: 48/M ROOM: RE03/13/[address]: Dr. Philippe Ibanez MD : 1975 BED: DIS: 03/13/2023 SPEC #: [id number] RECD: 03/14/23 07:32 STATUS: TOYA JULIEN #: [id number] WAYNE: 03/13/23 12:[address]: Philippe Ibanez DEPT: SURGICAL PATHOLOGY RECD BY: Addie Gonzalez ENTERED: 03/14/23 07:32 SP TYPE: BURSA OTHR DR: Dr. Alonso Glez MD Tissues: Bursa, NOS Procedures: Surgery Specimen Level IV HEADER OPERATION: Left elbow bursectomy, debridement PRE-OP DIAGNOSIS: Olecranon bursitis left elbow TISSUE SUBMITTED: Left elbow bursa MICROSCOPIC DIAGNOSIS Olecranon bursa of left elbow, biopsy: Consistent with gouty tophus. See comment. AM:toney 03/15/2023 COMMENT Touch prep smears of preprocessed tissue is examined under polarized light microscopy and reveals crystals consistent with monosodium urate. Case has been reviewed in consultation with Dr. Flowers who concurs with the above diagnosis. IDC:KELLE MICROSCOPIC DESCRIPTION Slides are reviewed. GROSS DESCRIPTION Received in fixative is one container labeled with the patient's name and designated left elbow bursa. The specimen consists of a piece of myles, indurated tissue measuring 4.5 x 3.0 x 1.0 cm. Sections reveal numerous chalky white deposits. Health And Safety Advisor sections are submitted in two cassettes. One touch imprint is prepared from chalky white deposits. / KELLE:toney 03/14/2023 TC:5 CPT: 28390, 86015
[2023-03-13] MEDS: Bupivacaine 0.25% 30 ML Vial (13:07)
--- NOTE | 2023-03-13 13:28 | OP.PCM_ITS ---
Problems Associated Problem List Diagnoses (1) Olecranon bursitis, left elbow: Report of Operation Date of Procedure: 03/13/23 Pre-Operative Diagnosis: Left elbow bursitis Post-Operative Diagnosis: Same Surgery/Procedure Performed:: Left elbow bursectomy and debridement Surgeon: Philippe Ibanez Type of Anesthesia: General and Local Anesthesiologist: Marvin Jordan Estimated Blood Loss (mL): 20 Description of Procedure: Patient brought to the operating room theater. Placed supine on the table. General anesthesia induced. 2 g IV Ancef ministered prior to start of procedure. Patient transferred to the left side up lateral decubitus beanbag positioner axillary roll used. SCDs on the leg. All prominences padded. Upper extremity prepped and draped in the usual sterile fashion allowing over 3 minutes drying time prior to draping. Preoperative timeout performed confirm the site patient and surgery. Began by elevating the tourniquet to 250 mmHg. Made a slightly curved laterally based incision around the tip of the olecranon. Dissection down through skin subcutaneous tissue and achieved meticulous hemostasis. I excised the olecranon bursa in 1 segment. Gentle soft tissue handling. I sent the specimen in formalin to the pathology department. There did appear to be some gouty calcific deposits there as well as in the soft tissues which I removed. I stayed well lateral to the ulnar nerve I palpated the nerve to make sure it was not subluxed or near the surgical field. I took lateral radiographs and used a rongeur and rasp device to smooth away and contour the tip of the olecranon to take away any sort of sharp edge or point. Tourniquet let down thorough debridement. Wound thoroughly irrigated with normal saline. Subcutanoues tissue closed with 2-0 Vicryl suture and skin with 3-0 Monocryl. 10 cc of quarter percent bupivacaine instilled around the soft tissues. Skin cleaned with wet and dry dressing followed by adaptic Steri- Strips Adaptic 4 x 4 gauze ABD dressing and Sha loosely wrapped taped. Patient woken up from the general anesthetic transferred off the operating table taken to postanesthetic care unit in stable addition. All sponge needle instrument counts were correct no complications. cpt 77983 Complications none Admit VTE Documentation VTE Present on Admission: No VTE Mechan Device Prophylaxis: SCD's VTE Pharm Prophylaxis ordered?: No Reason prophylaxis not ordered:: Treatment Not Indicated Procedures Musculoskeletal 20xxx-29xxx: Other Procedure See Report
--- NOTE | 2023-03-13 13:34 | DCINST_ITS ---
Discharge Instructions Diet Discharge Diet: No restrictions Activity Discharge Activity: No Restrictions Ice area for (Minutes): 10 Lifting Restrictions: no heavy lifting, ok for gentle elbow ROM Keep extremity elevated above heart level: Operative Extremity Dressing / Incision Call your doctor if your incision/area has: Continuous Slow Oozing, Sudden In creased Bleeding, Increased Pain/ Swelling, Increased Redness, Foul Smelling Discharge and Swelling at the incision site Change Dressing in: 2 days Follow Up Care Please Follow Up With: Philippe Ibanez MD When: 2 days or 2 weeks Test Results: Test results from this visit will be discussed in further detail at your follow- up appointment, if applicable. Discharge Plan Admission Attending Provider: Philippe Ibanez Primary Care Provider: Alonso Glez Discharge Orders/Prescriptions Prescriptions: New oxycodone-acetaminophen [Endocet] 5-325 mg tablet 1 tab PO Q4H MDD 6 PRN (Reason: pain) 3 Days Qty: 14 0RF No Action metoprolol tartrate 25 mg tablet 25 mg PO BID colchicine 0.6 mg capsule 0.6 mg PO DAILY sertraline 150 mg capsule 150 mg PO QHS aspirin [Adult Low Dose Aspirin] 81 mg tablet,delayed release (DR/EC) 81 mg PO DAILY rosuvastatin [Crestor] 10 mg tablet 10 mg PO DAILY pantoprazole [Protonix] 40 mg Tablet,Delayed Release (Dr/Ec) 40 mg PO DAILY Referrals / Follow Up: Alonso Glez MD [Primary Care Provider] - Philippe Ibanez MD [Med Staff - Active Staff] - Disposition Disposition (needs filled in before D/C Order can be placed): Home, Self Care
== END 2023-03-13 14:25 | disposition home or self-care (01) ==
LOC: SDC 11:04 → AC 11:06
PROVIDERS: PCP Family Medicine; Referring Provider Orthopaedic Surgery Sports Medicine; Visit Provider Orthopaedic Surgery Sports Medicine
PROC: (CPT 29830; principal; 2023-03-13 12:30)
DX: M70.22 Olecranon bursitis, left elbow (principal); F17.220 Nicotine dependence, chewing tobacco, uncomplicated; I10 Essential (primary) hypertension; E78.00 Pure hypercholesterolemia, unspecified; Z79.82 Long term (current) use of aspirin
CPT/HCPCS: 24105; 01710; 73070; 76000; 88304; 88305; J7120; J2405